=== PATIENT | female | born 1955 | race Caucasian/White ===

== ENCOUNTER → 2016-06-07 | Outpatient (CLI) | payer BC ==
--- NOTE | 2016-06-07 11:47 | WWHP ---
DATE OF SERVICE: 06/07/2016 CHIEF COMPLAINT: The patient is here for her routine gynecologic exam. HPI: This is a 61-year-old G0 with an LMP of 2015. The patient does have occasional hot flashes, but they are tolerable. She denies any postmenopausal bleeding. She did not use estrogen vaginal cream that was prescribed but has found a lubricant that works well for her. She is without gynecologic complaints. PAST MEDICAL HISTORY: Scoliosis, chronic hip problems and brief depression, which was related to work, but she is now retired and off of medications. MEDICATIONS: 1. Multivitamin daily. 2. Fish oil supplement 1 daily. 3. Caltrate. 4. Calcium supplement with vitamin D3 daily. ALLERGIES: CODEINE. PAST SURGICAL HISTORY: Colonoscopy 2009 and 2013 and tonsillectomy in 1959. 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 SOCIAL HISTORY: She denies tobacco and drug use and has about 0 to 1 alcoholic drink per week. She has been since 2004 and retired in 2016 from [employer]. She has a fifth wheel and has been traveling in it. She often does mission trips to [facility] as well. FAMILY HISTORY: Unchanged from the 2014 H&P. REVIEW OF SYSTEMS: She has gained about 6 pounds over the last year. She denies respiratory, cardiac, or GI problems. PHYSICAL EXAM: Blood pressure 118/68. Height 5 feet 5 inches. Weight 141 pounds. Temperature 97.6, pulse 73. This is a well-developed, well-nourished white female who is alert and oriented x3 in no acute distress. HEENT is within normal limits. NECK: Supple without mass or thyromegaly. CHEST AND LUNGS: Clear to auscultation. HEART: Regular rate and rhythm. Breasts are without mass or discharge. Axillary exam is negative for adenopathy. BACK: Negative for CVA tenderness. ABDOMEN: Soft, nontender, without palpable masses. PELVIC EXAM: External genitalia reveals mild atrophy without lesions. Cervix and vagina reveal mild atrophy without lesions. There is no evidence of prolapse. The uterus is midposition, nongravid size and nontender. There are no palpable adnexal masses or tenderness. Rectovaginal exam is negative for mass or tenderness and is negative for occult blood. EXTREMITIES: Nontender. IMPRESSION: A 61-year-old menopausal female with normal gynecologic exam. PLAN: 1. Pap smear was performed. 2. Self breast examination was discussed. 3. Mammogram will be due in 09/10, and a slip was given to patient for this. 4. Osteoporosis prevention was discussed. 5. She will return in one year.
== END | disposition home or self-care (01) ==
LOC: WWCWWP 08:13
PROVIDERS: ATTEND Obstetrics & Gynecology

== ENCOUNTER → 2016-07-18 | Outpatient (CLI) | payer BC ==
--- NOTE | 2016-07-18 12:49 | XR ---
EXAMINATION TYPE: XR lumbar spine 2 or 3V DATE OF EXAM: 07/18/2016 12:36 PM CLINICAL HISTORY: Low back pain for years. TECHNIQUE: Frontal and lateral images of the lumbar spine are obtained. COMPARISON: None FINDINGS: There are 5 lumbar type vertebral bodies identified. There is levoconvex scoliosis centere d at L2 level. There is loss of normal lumbar lordosis on lateral images. Vertebral body heights are within normal limits. There is moderate multilevel disc space narrowing most prominent in the right u pper lumbar levels. Facet arthropathy lower lumbar levels is seen. The overlying soft tissue appears unremarkable. IMPRESSION: Loss of normal lumbar lordosis with scoliosis and multilevel degenerative findings as det marlee above.
--- NOTE | 2016-07-18 12:50 | XR ---
EXAMINATION TYPE: XR pelvis AP view DATE OF EXAM: 07/18/2016 12:36 PM CLINICAL HISTORY: Pelvic pain. Sacroiliitis per order. TECHNIQUE: A single AP view of the pelvis is obtained. COMPARISON: None. FINDINGS: There is no acute fracture/dislocation evident in the pelvis. The hip and sacroiliac join ts appear symmetric and unremarkable. Some left-sided pelvic phleboliths are seen. IMPRESSION: Fairly unremarkable pelvic x-ray.
--- NOTE | 2016-07-18 12:52 | XR ---
EXAMINATION TYPE: XR Hip Bilateral Complete DATE OF EXAM: 07/18/2016 12:36 PM CLINICAL HISTORY: Bilateral hip pain. TECHNIQUE: AP and frogleg views of the bilateral hips are obtained. COMPARISON: None. FINDINGS: There is no acute fracture/dislocation evident in either hip. There is mild axial joint sp jania loss bilaterally fairly symmetric. No significant spurring or subchondral cystic change is presen t. No suspicious focal lytic or sclerotic lesion is seen. The overlying soft tissue appears unremarka ble. IMPRESSION: There is mild symmetric axial joint space loss in both hips.
== END | disposition home or self-care (01) ==
LOC: RADXRMAIN 12:07
PROVIDERS: ATTEND Family Medicine
DX: M47.816 Spondylosis without myelopathy or radiculopathy, lumbar region (principal); M41.9 Scoliosis, unspecified; M46.1 Sacroiliitis, not elsewhere classified
CPT/HCPCS: 72100; 72170; 73521

== ENCOUNTER → 2016-09-23 | Outpatient (CLI) | payer BC ==
--- NOTE | 2016-09-28 08:26 | MM ---
Reason for exam: screening (asymptomatic). Last mammogram was performed 1 year ago. History: Patient is postmenopausal, has history of other cancer at age 55, and is nulliparous. Family history of breast cancer in paternal aunt at age 80. Physical Findings: A clinical breast exam by your physician is recommended on an annual basis and results should be correlated with mammographic findings. MG 3D Screening Mammo W/Cad Bilateral CC and MLO view(s) were taken. Prior study comparison: September 18, 2015, bilateral MG 3d screening mammo w/cad. August 08, 2014, mammogram. June 08, 2013, mammogram. The breast tissue is extremely dense which could obscure a lesion on mammography. Finding: There is an equal density (isodense), obscured mass located 6 cm from the nipple in the 3 o'clock position of the left breast. New finding since August 08, 2014. ASSESSMENT: Incomplete: need additional imaging evaluation, BI-RAD 0 RECOMMENDATION: Ultrasound of the left breast. [facility] will attempt to contact patient to return for ultrasound.
== END | disposition home or self-care (01) ==
LOC: RADMAMWWP 08:54
PROVIDERS: ATTEND Obstetrics & Gynecology
DX: Z12.31 Encounter for screening mammogram for malignant neoplasm of breast (principal)
CPT/HCPCS: 77063; G0202

== ENCOUNTER → 2016-10-07 | Outpatient (CLI) | payer BC ==
--- NOTE | 2016-10-07 10:41 | USB ---
Reason for exam: additional evaluation requested from abnormal screening. History: Patient is postmenopausal, has history of other cancer at age 55, and is nulliparous. Family history of breast cancer in paternal aunt at age 80. 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 US Breast Workup Limited LT Left breast ultasound demonstrates a 0.7 x 0.7 x 0.5cm oval, cystic lesion at 2:30 corresponds well with the circumscribed mammographic finding located at the palpable site and a 2 x 2 x 2mm lesion too small to characterize at 4 o'clock, likely cystic. These results were verbally communicated with the patient and result sheet given to the patient on 10/07/16. ASSESSMENT: Benign, BI-RAD 2 RECOMMENDATION: Return to routine screening mammogram schedule for both breasts. Manage patient on a clinical basis with regard to any suspicious palpable abnormalities.
== END | disposition home or self-care (01) ==
LOC: RADUSWWP 09:29
PROVIDERS: ATTEND Obstetrics & Gynecology
DX: R92.8 Other abnormal and inconclusive findings on diagnostic imaging of breast (principal)

== ENCOUNTER → 2016-12-27 | Outpatient (CLI) | payer BC ==
--- NOTE | 2016-12-27 16:35 | P.PN ---
Progress Note - Text Chief complaint: left breast concerns since her last mammogram. HPI: this is a 61-year-old G0 within LMP of 2014 who was previously seen here on 06/07/2016 for her annual examination. She had a screening mammogram on which showed a density at approximately 3 o'clock position of the left breast. Ultrasound of the left breast was recommended. Ultrasound on 2016 showed a 0.7 cm cystic lesion at the 2:30 position and this was felt to be benign. Return to routine screening mammogram for both breasts was recommended. The patient is here today because she is concerned and wonders whether more should be done for this finding. She has had some soreness in the left breast at approximately 3 o'clock position. She wonders if it is from the cyst or if it is from muscle soreness on that side. She denies any nipple discharge. Past medical history and medications are unchanged from the 06/07/2016 H&P. Review of systems: she has lost about 10 pounds for the past 6 months. Also see the HPI. Physical exam: vital signs: blood pressure 113/77, height 5'5", weight 129 pounds, tempter 98.1 , pulse 80. The patient is alert and oriented times 3 in no acute distress. She is well- developed and well-nourished. Breasts: are normal to inspection. There is no unusual puckering or dimpling. There is no nipple inversion or discharge. There is minimal soreness at the 3 o 'clock position of the left breast. There is no discrete mass noted. There are no right breast masses or tenderness. Axillary exam is negative for adenopathy. Impression: 1. 61-year-old menopausal female with a 7 mm benign appearing at the 2:30 position of the left breast by ultrasound. 2. Minimal soreness and tenderness at the area of the cyst in the left breast. This could be from the cyst, muscle soreness, or soreness from frequent palpation of the area. Plan: 1. I have reviewed the most recent mammogram and ultrasound with Dr. Archer, the radiologist. He agrees that the cyst in the left breast has a very benign appearance. 2. I have reassured the patient that these cyst is a 9 in appearance and we discussed options. I have recommended that she have a screening mammogram in September 2016. We also discussed the option of aspiration of the cyst if the cyst is bothersome to her. If the cyst is causing discomfort or if this is making her worry, Dr. Archer feels that aspiration of the cyst would be a relatively simple procedure. At this time she states she will plan on repeating the mammogram in September 2017. She will call if she decides she would like to proceed with breast aspiration. Total time spent the patient 20 minutes.
== END | disposition home or self-care (01) ==
DX: N60.02 Solitary cyst of left breast (principal)

== ENCOUNTER → 2017-07-26 | Outpatient (CLI) | payer BC ==
[2017-07-26 08:45] VITALS: BP 105/69; PULSE 74; RESP 12; TEMP 97.5; BMI 21.9
--- NOTE | 2017-07-26 09:25 | P.HPOB ---
History of Present Illness H&P Date: 07/26/17 Chief Complaint: The patient is here for her routine gynecologic exam. This is a 62-year-old G0 with an LMP of 2015. The patient has been using a lubricant that works well with her with sexual activity. She did not try estrogen vaginal cream. She is without gynecologic complaints. She denies any postmenopausal bleeding. Review of Systems She has lost 9 pounds over the last year with increased activity. She denies respiratory, cardiac, or G.I. problems. Past Medical History Additional Past Medical History / Comment(s): Scoliosis and chronic hip problems. 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 Past Surgical History: Tonsillectomy Additional Past Surgical History / Comment(s): Colonoscopy 2009 and 2013. Past Psychological History: Depression (Brief in past) Smoking Status: Never smoker Past Alcohol Use History: Occasional (2 to 3 per week) Past Drug Use History: None Reported Additional History: She has been retired since 2015. She has been since 2003. - Past Family History Father Family Medical History: Cancer (Lymphoma) Brother(s) Family Medical History: AFIB Additional Family Medical History / Comment(s): Paternal aunt had breast cancer. Medications and Allergies Home Medications Medication Instructions Recorded Confirmed Type No Known Home Medications [No 07/26/17 07/26/17 History Known Home Medications] Allergies Allergy/AdvReac Type Severity Reaction Status Date / Time codeine AdvReac Confusion Verified 07/26/17 09:20 Exam - Vital Signs Vital signs: Vital Signs Temp Pulse Resp BP 07/26/17 08:31 97.5 F L 74 12 105/69 Intake and Output 07/25/17 07/26/17 07/26/17 22:59 06:59 14:59 Other: Weight 59.874 kg Height 5'5", BMI 22.0. This is a well-developed well-nourished white female who is alert and oriented times 3 in no acute distress. HEENT: Within normal limits. NECK: Supple without mass or thyromegaly. CHEST AND LUNGS: Clear to auscultation. HEART: Regular rate and rhythm. BREASTS: Are without mass or discharge. AXILLARY EXAM: Negative for adenopathy. BACK: Negative for CVA tenderness. ABDOMEN: Soft, nontender, without palpable masses. PELVIC EXAM: Normal external genitalia with mild to moderate atrophy. Cervix and vagina appear normal with mild to moderate atrophy. There is no unusual discharge. There is no evidence of prolapse. The uterus is midposition, nongravid size and nontender. There are no palpable adnexal masses or tenderness. RECTAL EXAM: rectovaginal exam is negative for mass or tenderness and is negative for occult blood. EXTREMITIES: Nontender. IMPRESSION: 1. 62-year-old menopausal female with normal gynecologic exam. PLAN: 1. Pap smear was deferred since she had a normal one last year. 2. Self breast awareness was discussed. 3. Mammogram will be due in 10/11. An order slip was given to the patient for this. 4. Osteoporosis prevention was discussed. I have recommended bone density screening since it is been more than 5 years since her last one. An order slip was given to the patient for this and she states she will do this at the time of her next mammogram. 5. She will return one year.
== END | disposition home or self-care (01) ==
LOC: WWCWWP 08:26
PROVIDERS: ATTEND Obstetrics & Gynecology
DX: Z53.9 Procedure and treatment not carried out, unspecified reason (principal)

== ENCOUNTER → 2017-10-11 | Outpatient (CLI) | payer BC ==
--- NOTE | 2017-10-11 15:41 | BD ---
EXAMINATION TYPE: Axial Bone Density DATE OF EXAM: 10/11/2017 CLINICAL HISTORY: Height: 65.5 Weight: 131 FRAX RISK QUESTIONS: Alcohol (3 or more units per day): no Family History (Parent hip fracture): no Glucocorticoids (More than 3mos): no (Ex: prednisone, prednisolone, methylprednisolone, dexamethasone, and hydrocortisone). History of Fracture in Adulthood: no Secondary Osteoporosis: 1. Type 1 Diabetes: no 2. Hyperthyroidism: no 3. Menopause before 45: no 4. Malnutrition: no 5. Chronic liver disease: no Rheumatoid Arthritis: no Current Tobacco Use: no RISK FACTORS HISTORY OF: Family History of Osteoporosis: no Active: yes Diet low in dairy products/other sources of calcium: no Postmenopausal woman: yes Take estrogen and/or progesterone medications: no Lost more than 2 inches in height since high school: no Frequent falls: no Poor Health: no Hyperparathyroidism: no Adrenal Insufficiency: no MEDICATIONS: Prednisone or other steroids: no Thyroid Medications: no Osteoporosis Medications: no Additional Medications: multi vitamin & fish oil Additional History: low back pain near hip for years EXAM MEASUREMENTS: Bone mineral densitometry was performed using the [employer] System. Bone mineral density as measured about the Lumbar spine is: ----- L1-L4(G/cm2): 1.142 T Score Values are as follows: ----- L2: -0.3 ----- L3: 0.3 ----- L4: -0.9 ----- L1-L4: -0.3 Bone mineral density not previously done at this facility, done [facility] some years ago Bone mineral density about the R hip (g/cm2): 1.006 Bone mineral density about the L hip (g/cm2): 0.947 T Score values are as follows: -----R Neck: -0.2 -----L Neck: -0.7 -----R Total: 0.2 -----L Total: -0.4 Bone mineral density not previously done at this facility, done [facility] some years ago IMPRESSION: No evidence for osteoporosis or osteopenia. NOTE: T-SCORE=SD OF THE YOUNG ADULT MEAN.
--- NOTE | 2017-10-13 10:20 | MM ---
Reason for exam: screening (asymptomatic). Last mammogram was performed 1 year and 1 month ago. History: Patient is postmenopausal, has history of other cancer at age 55, and is nulliparous. Family history of breast cancer in paternal aunt at age 80. Physical Findings: A clinical breast exam by your physician is recommended on an annual basis and results should be correlated with mammographic findings. MG 3D Screening Mammo W/Cad Bilateral CC and MLO view(s) were taken. Prior study comparison: September 23, 2016, bilateral MG 3d screening mammo w/cad. September 18, 2015, bilateral MG 3d screening mammo w/cad. The breast tissue is heterogeneously dense. This may lower the sensitivity of mammography. The previous left breast cyst posteriorly increased by a millimeter or two now at 9mm. No significant changes when compared with prior studies. ASSESSMENT: Benign, BI-RAD 2 RECOMMENDATION: Routine screening mammogram of both breasts in 1 year.
== END | disposition home or self-care (01) ==
LOC: RADMAMWWP 07:48
PROVIDERS: ATTEND Obstetrics & Gynecology
DX: Z12.31 Encounter for screening mammogram for malignant neoplasm of breast (principal); Z78.0 Asymptomatic menopausal state
CPT/HCPCS: 77063; 77067; 77080

== ENCOUNTER → 2018-08-07 | Outpatient (CLI) | payer BC ==
[2018-08-07 08:53] LABS: Basophils % (A) 1 %; Eosinophils # (A) 0.1 k/uL (0-0.7); Eosinophils % (A) 2 %; HCT 43.8 % (34.0-46.0); Lymphocytes # (A) 1.5 k/uL (1.0-4.8); Lymphocytes % (A) 36 %; MCH 31.6 pg (25.0-35.0); MCHC 31.9 g/dL (31.0-37.0); Mean Platelet Volume 7.8; Monocytes # (A) 0.3 k/uL (0-1.0); Monocytes % (A) 6 %; Neutrophils # (A) 2.2 k/uL (1.3-7.7); Neutrophils % (A) 53 %; Platelet Count 175 k/uL (150-450); RBC 4.43 m/uL (3.80-5.40); RDW 13.3 % (11.5-15.5); WBC 4.3 k/uL (3.8-10.6)
[2018-08-07 18:40] LABS: Albumin 4.6 g/dL (3.80-4.90); Albumin/Globulin Ratio 2.71 (1.60-3.17); Anion Gap 7.3 mmol/L (4.00-12.00); Calcium 9.3 mg/dL (8.7-10.3); Carbon Dioxide 25.7 mmol/L (21.6-31.8); Globulin 1.7 g/dL (1.6-3.3); LDL Cholesterol,Calculated 142.6 mg/dL (0.0-131.0); Potassium 4.7 mmol/L (3.5-5.5); Total Bilirubin 0.9 mg/dL (0.2-1.2); Total Protein 6.3 g/dL (6.2-8.2); VLDL Calculation 16.4 mg/dL (5.00-40.00)
== END | disposition home or self-care (01) ==
LOC: LABWHC1 08:06
PROVIDERS: ATTEND Family Medicine
DX: Z00.00 Encounter for general adult medical examination without abnormal findings (principal)
CPT/HCPCS: 36415; 80053; 80061; 84443; 85025

== ENCOUNTER → 2018-08-17 | Outpatient (CLI) | payer BC ==
--- NOTE | 2018-08-28 11:50 | HM ---
HOLTER MONITOR REPORT 24-HOUR HOLTER MONITOR DATE OF SERVICE: August 17, 2018 INDICATIONS: Palpitations. The patient was monitored for 24 hours. The baseline rhythm appeared to be a sinus mechanism with a minimum heart rate of 46 beats per minute, max heart rate 116 beats per minute and average heart rate of 66 beats per minute. Ventricular ectopic events presented in less than 1% of the total beats count. Supraventricular ectopic events presented in less than 1% of the total beats count as well. The patient did not have any evidence of sinus pause or sinus arrest seen. There is no evidence of any advanced AV block seen as well. CONCLUSION: 1. Sinus rhythm as a baseline mechanism with a minimum heart rate of 46 beats per minute, max heart rate 160 beats per minute, average heart rate of 66 beats per minute. 2. Rare ventricular ectopic events. 3. Rare supraventricular ectopic events. 4. There is no evidence of sinus pause or sinus arrest. 5. There is no evidence of any advanced AV block. 6. The patient reported symptoms of flutter in the chest and palpitations and these symptoms were associated with normal sinus mechanism. MMODL / IJN: [id number] /
== END | disposition home or self-care (01) ==
LOC: RADECHMAIN 09:14
PROVIDERS: ATTEND Family Medicine
DX: I49.3 Ventricular premature depolarization (principal)
CPT/HCPCS: 93225; 93226

== ENCOUNTER → 2018-10-16 | Outpatient (CLI) | payer BC ==
--- NOTE | 2018-10-16 10:11 | P.HPOB ---
History of Present Illness H&P Date: 10/16/18 Chief Complaint: The patient is here for her routine gynecologic exam and ma mmogram. This is a 63-year-old G0 with an LMP of 2015. The patient states she continues to have discomfort with sexual intercourse secondary to dryness. She has declined using estrogen vaginal cream because of concerns about using hormones. She is otherwise without complaints and denies any postmenopausal bleeding. Review of Systems The patient's weight has been stable over the last year. She denies respiratory or G.I. problems. Cardiac: she has had occasional heart fluttering and has had a cardiac evaluation including a Holter monitor. Past Medical History Additional Past Medical History / Comment(s): Scoliosis and chronic hip problems. 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 History of Any Multi-Drug Resistant Organisms: None Reported Past Surgical History: Tonsillectomy Additional Past Surgical History / Comment(s): [id number](3rd, next 7yrs). Past Psychological History: Depression Smoking Status: Never smoker Past Alcohol Use History: Occasional (243 per week) Past Drug Use History: None Reported Additional History: She is been made since 2003 and has been retired since 2015. - Past Family History Father Family Medical History: Cancer Additional Family Medical History / Comment(s): Lymphoma. Brother(s) Family Medical History: AFIB Additional Family Medical History / Comment(s): Paternal aunt had breast cancer. Medications and Allergies Home Medications Medication Instructions Recorded Confirmed Type Acetaminophen [Tylenol Arthritis] 650 mg PO BID 10/16/18 10/16/18 History Multivitamin [Multivitamins Adult 1 each PO DAILY 10/16/18 10/16/18 History Gummies] [place]-3 Fatty Acids/Fish Oil [Fish 1 each PO DAILY 10/16/18 10/16/18 History Oil 1,000 mg Softgel] Allergies Allergy/AdvReac Type Severity Reaction Status Date / Time codeine AdvReac Confusion Verified 10/16/18 09:31 Exam Vital Signs Temp Pulse Resp BP Pulse Ox 10/16/18 09:12 98.5 F 67 16 114/76 100 Intake and Output 10/15/18 10/16/18 10/16/18 22:59 06:59 14:59 Other: Weight 60.781 kg Height 5'5", weight 134 pounds, BMI 22.3. This is a well-developed well-nourished white female who is alert and oriented times 3 in no acute distress. HEENT: Within normal limits. NECK: Supple without mass or thyromegaly. CHEST AND LUNGS: Clear to auscultation. HEART: Regular rate and rhythm. BREASTS: Are without mass or discharge. AXILLARY EXAM: Negative for adenopathy. BACK: Negative for CVA tenderness. ABDOMEN: Soft, nontender, without palpable masses. PELVIC EXAM: Normal external genitalia with mild to moderate atrophy. Cervix and vagina appear normal with mild to moderate atrophy. There is no unusual discharge. There is no evidence of prolapse. The uterus is midposition, nongravid size and nontender. There are no palpable adnexal masses or tenderness. RECTAL EXAM: rectovaginal exam is negative for mass or tenderness and is negative for occult blood. EXTREMITIES: Nontender. IMPRESSION: 1. 63-year-old menopausal female with normal gynecologic exam. 2. Dyspareunia secondary to genital atrophy. PLAN: 1. Pap smear was performed. 2. Self breast awareness was discussed with the patient. 3. Screening mammogram will be done today. 4. Osteoporosis prevention was discussed. I have stressed the importance of adequate calcium, vitamin D and regular exercise. Recommended amounts of calcium and vitamin D were also discussed. Bone density test was normal on 10/11/2017. This will be repeated after 5-6 years. 5. We have discussed options for vaginal dryness. She has tried lubricants. She will try a vaginal moisturizer which is [id number]. She will use this as directed. I have also recommended a trial of estrogen vaginal cream which she is declining at this time. She will call if she changes her mind. 6. She was advised to return in one year for her annual well woman exam.
[2018-10-16 10:23] VITALS: BP 114/76; PULSE 67; RESP 16; TEMP 98.5; BMI 22.3
--- NOTE | 2018-10-17 13:37 | MM ---
Reason for exam: screening (asymptomatic). Last mammogram was performed 1 year ago. History: Patient is postmenopausal, has history of other cancer at age 55, and is nulliparous. Family history of breast cancer in paternal aunt at age 80. Physical Findings: A clinical breast exam by your physician is recommended on an annual basis and results should be correlated with mammographic findings. MG 3D Screening Mammo W/Cad Bilateral CC and MLO view(s) were taken. Prior study comparison: October 11, 2017, bilateral MG 3d screening mammo w/cad. September 23, 2016, bilateral MG 3d screening mammo w/cad. The breast tissue is extremely dense which could obscure a lesion on mammography. There are benign appearing round calcifications bilaterally. There is no discrete abnormality. ASSESSMENT: Negative, BI-RAD 1 RECOMMENDATION: Routine screening mammogram of both breasts in 1 year.
== END | disposition home or self-care (01) ==
LOC: WWCWWP 09:03
PROVIDERS: ATTEND Obstetrics & Gynecology
DX: Z12.31 Encounter for screening mammogram for malignant neoplasm of breast (principal)
CPT/HCPCS: 77063; 77067

== ENCOUNTER → 2019-11-26 | Outpatient (CLI) | payer BC ==
[2019-11-26 09:18] VITALS: BP 121/79; PULSE 72; RESP 16; TEMP 98.7
--- NOTE | 2019-11-26 10:09 | P.HPOB ---
History of Present Illness H&P Date: 11/26/19 Chief Complaint: The patient is here for her routine gynecologic exam and ma mmogram. This is a 64-year-old G0 with an LMP of 2014. The patient is experiencing discomfort with intercourse secondary to dryness. She again is declining estrogen vaginal cream or inserts because of concerns regarding hormones. She has not found a lubricant or moisturizer that seems to work well. She is otherwise without complaints. Review of Systems The patient's weight has been stable over the last year. She denies respiratory or G.I. problems. Cardiac: She has had an occasional flutter sensation and is currently being worked up by her PCP. Past Medical History Additional Past Medical History / Comment(s): Scoliosis and chronic hip problems. Past [employer] history: she has no history of STDs. History of Any Multi-Drug Resistant Organisms: None Reported Past Surgical History: Tonsillectomy Additional Past Surgical History / Comment(s): [id number](3rd, next 7yrs). Past Psychological History: Depression Smoking Status: Never smoker Past Alcohol Use History: Occasional Additional Past Alcohol Use History / Comment(s): Quit drinking alcohol 2019. Previously drank 0-2 per week. Past Drug Use History: None Reported Additional History: She has been since 2004 and is sexually active. She has been retired since 2016. 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 - Past Family History Father Family Medical History: Cancer Additional Family Medical History / Comment(s): Lymphoma. Brother(s) Family Medical History: AFIB Additional Family Medical History / Comment(s): Paternal aunt had breast cancer. Mother Family Medical History: Dementia Medications and Allergies Home Medications Medication Instructions Recorded Confirmed Type Acetaminophen [Tylenol Arthritis] 650 mg PO DAILY 10/16/18 11/26/19 History Multivitamin [Multivitamins Adult 1 each PO DAILY 10/16/18 11/26/19 History Gummies] Mercedes-3 Fatty Acids/Fish Oil [Fish 1 each PO DAILY 10/16/18 11/26/19 History Oil 1,000 mg Softgel] Cholecalciferol (Vitamin D3) 125 mcg PO DAILY 11/26/19 11/26/19 History [Vitamin D3] Allergies Allergy/AdvReac Type Severity Reaction Status Date / Time codeine AdvReac Confusion Verified 09/01/20 09:24 Exam Vital Signs Temp Pulse Resp BP Pulse Ox 11/26/19 09:02 98.7 F 72 16 121/79 98 Intake and Output 11/25/19 11/26/19 11/26/19 22:59 06:59 14:59 Other: Weight 59.874 kg Height 5 feet 4 inches, weight 132 pounds, BMI 22.7. This is a well-developed well-nourished white female who is alert and oriented times 3 in no acute distress. HEENT: Within normal limits. NECK: Supple without mass or thyromegaly. CHEST AND LUNGS: Clear to auscultation. HEART: Regular rate and rhythm. BREASTS: Are without mass or discharge. AXILLARY EXAM: Negative for adenopathy. BACK: Negative for CVA tenderness. ABDOMEN: Soft, nontender, without palpable masses. PELVIC EXAM: Normal external genitalia with mild to moderate atrophy. Cervix and vagina appear normal mild to moderate atrophy. The cervix and vagina are nulliparous. There is no unusual discharge. There is no evidence of prolapse. The uterus is midposition, nongravid size and nontender. There are no palpable adnexal masses or tenderness. RECTAL EXAM: Rectovaginal exam is negative for mass or tenderness. Fecal occult blood testing was deferred since she recently did this through her PCP and was negative per the patient. EXTREMITIES: Nontender. IMPRESSION: 1. 64-year-old menopausal female with normal gynecologic exam. 2. Dyspareunia secondary to vaginal dryness and genital atrophy. PLAN: 1. Pap smear was deferred since she had a normal one on 10/16/2018. 2. Self breast awareness was discussed with the patient. 3. Screening mammogram will be done today. 4. Osteoporosis prevention was discussed. I have stressed the importance of adequate calcium, vitamin D and regular exercise. Recommended amounts of calcium and vitamin D were also discussed. We will plan on repeating bone density test in approximately 2023 since she had a normal one last year. 5. We have discussed vaginal dryness and genital atrophy causing dyspareunia. She will continue to try to find a lubricant that works well for her. She states she try a vaginal moisturizer which she did not tolerate. We discussed the option of estrogen vaginal cream or insert. She will consider this and let me know if she wants to proceed with this. 6. She was advised to return in one year for her annual well woman exam.
--- NOTE | 2019-11-27 10:13 | MM ---
Reason for exam: screening (asymptomatic). Last mammogram was performed 1 year and 1 month ago. History: Patient is postmenopausal, has history of other cancer at age 55, and is nulliparous. Family history of breast cancer in paternal aunt at age 80. Physical Findings: A clinical breast exam by your physician is recommended on an annual basis and results should be correlated with mammographic findings. MG 3D Screening Mammo W/Cad Bilateral CC and MLO view(s) were taken. Prior study comparison: October 16, 2018, bilateral MG 3d screening mammo w/cad. October 11, 2017, bilateral MG 3d screening mammo w/cad. The breast tissue is heterogeneously dense. This may lower the sensitivity of mammography. Stable benign calcifications. There is no discrete abnormality. No significant changes when compared with prior studies. ASSESSMENT: Benign, BI-RAD 2 RECOMMENDATION: Routine screening mammogram of both breasts in 1 year.
== END | disposition home or self-care (01) ==
LOC: WWCWWP 08:56
PROVIDERS: ATTEND Obstetrics & Gynecology
DX: Z12.31 Encounter for screening mammogram for malignant neoplasm of breast (principal)
CPT/HCPCS: 77063; 77067

== ENCOUNTER → 2020-12-08 | Outpatient (CLI) | payer BC ==
[2020-12-08 10:42] VITALS: BP 115/75; PULSE 69; RESP 16; TEMP 97.8
--- NOTE | 2020-12-08 11:38 | P.HPOB ---
History of Present Illness H&P Date: 12/08/20 Chief Complaint: The patient is here for her routine gynecologic exam and ma mmogram. This is a 65-year-old G0 with an LMP of 2015. The patient is without gynecologic complaints and denies any postmenopausal bleeding. Review of Systems She has lost about 3 pounds over the past year. She denies respiratory, cardiac and G.I. problems. She denies maltreatment or problems with falling. : she denies any significant problems with urinary leakage. Past Medical History Past Medical History: Hyperlipidemia Additional Past Medical History / Comment(s): Scoliosis and chronic back and hip problems. Past [employer] history: she has no history of STDs. History of Any Multi-Drug Resistant Organisms: None Reported Past Surgical History: Tonsillectomy Additional Past Surgical History / Comment(s): [id number](3rd, next 7yrs). Past Psychological History: Depression Smoking Status: Never smoker Past Alcohol Use History: None Reported Additional Past Alcohol Use History / Comment(s): Quit drinking alcohol 2019. Previously drank 0-2 per week. Past Drug Use History: None Reported Additional History: She has been since 2004 and is sexually active. She has been retired since 2015. 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 Her sister will be starting to provide some of the care as well. - Past Family History Father Family Medical History: Cancer Additional Family Medical History / Comment(s): Lymphoma. Brother(s) Family Medical History: AFIB Additional Family Medical History / Comment(s): Paternal aunt had breast cancer. Mother Family Medical History: Dementia Medications and Allergies Home Medications Medication Instructions Recorded Confirmed Type Acetaminophen [Tylenol Arthritis] 650 mg PO DAILY 10/16/18 12/08/20 History [place]-3 Fatty Acids/Fish Oil [Fish 1 each PO DAILY 10/16/18 12/08/20 History Oil 1,000 mg Softgel] Aspirin 81 mg PO DAILY 12/08/20 12/08/20 History Calcium Carbonate/Vitamin D3 1 each PO DAILY 12/08/20 12/08/20 History [Calcium 500 mg-Vit D3 5 mcg (200 Unit)] Allergies Allergy/AdvReac Type Severity Reaction Status Date / Time codeine AdvReac Confusion Verified 11/26/19 09:24 Exam Vital Signs Temp Pulse Resp BP Pulse Ox 12/08/20 10:40 97.8 F 69 16 115/75 100 Intake and Output 12/07/20 12/08/20 12/08/20 22:59 06:59 14:59 Other: Weight 58.513 kg Height 5 feet 5-1/2 inches, weight 129 pounds, BMI 21.1. This is a well-developed well-nourished white female who is alert and oriented times 3 in no acute distress. HEENT: Within normal limits. NECK: Supple without mass or thyromegaly. CHEST AND LUNGS: Clear to auscultation. HEART: Regular rate and rhythm. BREASTS: Are without mass or discharge. AXILLARY EXAM: Negative for adenopathy. BACK: Negative for CVA tenderness. ABDOMEN: Soft, nontender, without palpable masses. PELVIC EXAM: Normal external genitalia with mild to moderate atrophy. Cervix and vagina appear normal is mild to moderate atrophy. There is no unusual discharge. There is no evidence of prolapse. The uterus is midposition, nongravid size and nontender. There are no palpable adnexal masses or tenderness. RECTAL EXAM: Rectovaginal exam is negative for mass or tenderness and is neg ative for occult blood. EXTREMITIES: Nontender. IMPRESSION: 1. 65-year-old menopausal female with normal gynecologic exam. PLAN: 1. Pap smear was performed. If this is negative, we will plan on discontinuing Pap smear based on her age with adequate screening. 2. Self breast awareness was discussed with the patient. We have also discussed symptoms associated with inflammatory breast cancer. 3. Screening mammogram will be done today. 4. Osteoporosis prevention was discussed. I have stressed the importance of adequate calcium, vitamin D and regular exercise. Recommended amounts of ca lcium and vitamin D were also discussed. She had a normal mammogram done in 2018 and we will plan on repeating this in approximately 2 years. 5. She has completed her Covid vaccination series. 6. She was advised to return in one year for her annual well woman exam.
--- NOTE | 2020-12-09 12:27 | MM ---
Reason for exam: screening (asymptomatic). Last mammogram was performed 1 year ago. History: Patient is postmenopausal, has history of other cancer at age 55, and is nulliparous. Family history of breast cancer in paternal aunt at age 80. Physical Findings: A clinical breast exam by your physician is recommended on an annual basis and results should be correlated with mammographic findings. MG 3D Screening Mammo W/Cad Bilateral CC and MLO view(s) were taken. Prior study comparison: November 26, 2019, bilateral MG 3d screening mammo w/cad. October 16, 2018, bilateral MG 3d screening mammo w/cad. October 11, 2017, bilateral MG 3d screening mammo w/cad. The breast tissue is extremely dense which could obscure a lesion on mammography. There are benign appearing round dystrophic calcifications bilaterally. There is no discrete abnormality. ASSESSMENT: Benign, BI-RAD 2 RECOMMENDATION: Routine screening mammogram of both breasts in 1 year.
== END ==
LOC: WWCWWP 10:27
PROVIDERS: ATTEND Obstetrics & Gynecology
DX: Z12.31 Encounter for screening mammogram for malignant neoplasm of breast (principal); Z01.419 Encounter for gynecological examination (general) (routine) without abnormal findings; M41.9 Scoliosis, unspecified; E78.5 Hyperlipidemia, unspecified; F32.9 Major depressive disorder, single episode, unspecified; Z80.3 Family history of malignant neoplasm of breast; Z78.0 Asymptomatic menopausal state; Z88.5 Allergy status to narcotic agent
CPT/HCPCS: 77063; 77067